=== PATIENT | female | born 1960 | race Caucasian/White ===

== ENCOUNTER → 2023-03-26 | Outpatient (CLI) | payer MEDICARE | LOC: CANSCHCLI → MC.RAD 09:12 | DX: Z12.31 Encounter for screening mammogram for malignant neoplasm of breast (principal) ==

== ENCOUNTER → 2024-03-28 | Outpatient (CLI) | payer MEDICARE | LOC: MC.RAD 12:53 | DX: Z12.31 Encounter for screening mammogram for malignant neoplasm of breast (principal) ==